=== PATIENT | female | born 2000 ===

== ENCOUNTER 2024-01-09 10:25 | Emergency (ER) | payer MEDICAID, SELFPAY ==
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
[2024-01-09 10:32] VITALS: BP 108/60; BP 116/74; PULSE 98; RESP 20; TEMP 36.8; O2SAT 98; BMI 26.6
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
--- NOTE | 2024-01-09 13:50 | PC.NURSE ---
Pt. has long pants on at this time. OK per [employer] for pt. to apply Royce Wrap when she gets home and changes into different clothes. Explained to pt. how to apply ROYCE Wrap - pt. verbalizes understanding and has no further questions at this time.
[2024-01-09 13:53] VITALS: BP 116/74; PULSE 98; RESP 20; TEMP 36.8; O2SAT 98
== END 2024-01-09 13:54 | disposition home or self-care (01) ==
PROVIDERS: Emergency Provider Emergency Medicine; PCP Nurse Practitioner Primary Care
DX: S83.91XA Sprain of unspecified site of right knee, initial encounter (principal); V43.52XA Car driver injured in collision with other type car in traffic accident, initial encounter; Y93.89 Activity, other specified; Y92.414 Local residential or business street as the place of occurrence of the external cause; Y99.9 Unspecified external cause status
CPT/HCPCS: 73564; 99283